=== PATIENT | male | born 1970 | race Two or more races ===

== ENCOUNTER 2020-01-30 19:22 | Emergency (ER) | payer OTHER ==
[~2020-01-30] VITALS: Ht 170.2 cm; Wt 92.7 kg
--- NOTE | 2020-01-30 19:40 | NUR ---
THIS IS A 49Y M THAT COMES IN TONIGHT FOR COUGH AND FEVER X9DAYS. PT REPORTS COUGH HAS BEEN WORSENING. PT ALSO REPORTS NO VOMITING BUT DIARRHEA. 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 PT CONNECTED TO ALL MONITORING.
--- NOTE | 2020-01-30 19:41 | NUR ---
ER MD AT BEDSIDE TO ASSESS PT. PT EDUCATED ON POC AND SWAB FOR COVID AT THIS TIME
[2020-01-30] MEDS ORDERED: ACETAMINOPHEN 500 MG TABLET ONE (19:52)
--- NOTE | 2020-01-30 19:55 | NUR ---
PT MEDICATED PER MAR
[2020-01-30 19:59] LABS: BASOPHILS # (AUTO) 0.01 x10^3/uL (0-0.1); BASOPHILS % (AUTO) 0 % (0-1); EOSINOPHILS # (AUTO) 0.02 x10^3/uL (0-0.4); EOSINOPHILS % (AUTO) 0 % (1-7); LYMPHOCYTES # (AUTO) 1.12 x10^3/uL (1-3.4); LYMPHOCYTES % (AUTO) 13 % (22-44); MD NO; MEAN CORPUSCULAR HEMOGLOBIN 30.4 pg (27.5-34.5); MEAN CORPUSCULAR HGB CONC 34.2 g/dL (33.2-36.2); MEAN CORPUSCULAR VOLUME 88.8 fL (81-97); MEAN PLATELET VOLUME 7.8 fL (7.4-10.4); MONOCYTES # (AUTO) 0.58 x10^3/uL (0.2-0.8); MONOCYTES % (AUTO) 7 % (2-9); NEUTROPHILS # (AUTO) 6.71 x10^3/uL (1.8-6.8); NEUTROPHILS % (AUTO) 79 % (42-75); PLATELET COUNT 259 x10^3/uL (130-400); RED BLOOD COUNT 4.88 x10^6/uL (4.38-5.82); RED CELL DISTRIBUTION WIDTH 12.9 % (9.4-14.8)
[2020-01-30] MEDS ORDERED: ACETAMINOPHEN 500 MG TABLET PO ONE (20:00)
[2020-01-30 20:10] LABS: ANION GAP 7 mmol/L (5-15); CHLORIDE 105 mmol/L (98-107); CREATININE 1.17 mg/dL (0.7-1.3)
[2020-01-30 20:50] VITALS: BP 125/87
--- NOTE | 2020-01-30 20:50 | NUR ---
ERP AT BEDSIDE FOR RECHECK AND DISCUSS POC WITH PT
[2020-01-30] MEDS ORDERED: IBUPROFEN 600 MG TABLET ONE (20:54)
[2020-01-30] MEDS ORDERED: IBUPROFEN 600 MG TABLET PO ONE (21:00)
== END 2020-01-30 21:12 | disposition home or self-care (01) ==
LOC: ED 21:07
DX: U07.1 COVID-19 (principal); B34.9 Viral infection, unspecified; R05 Cough; I10 Essential (primary) hypertension; E11.9 Type 2 diabetes mellitus without complications; E03.9 Hypothyroidism, unspecified; F17.200 Nicotine dependence, unspecified, uncomplicated
CPT/HCPCS: 36415; 71045; 80048; 85025; 87635; 99284